=== PATIENT | male | born 1990 | race Native Hawaiian/Other Pacific Islander ===

== ENCOUNTER 2016-07-16 20:24 | Emergency (ER) | payer SELFPAY ==
[2016-07-16 20:58] VITALS: TEMP 97.9; O2SAT 99
--- NOTE | 2016-07-16 22:56 | C.PDOC ---
History Of Present Illness Patient c/o FB sensation in the throat started after he ate fish 3 h ago. Patient denies vomiting or difficulty swallowing. Time Seen by Provider: 07/16/16 21:26 Chief Complaint (Nursing): ENT Problem History Per: Patient Onset/Duration Of Symptoms: Hrs (3) Current Symptoms Are (Timing): Still Present Quality (Ear): Foreign Body Symptoms Have Been: Continuous Severity: Moderate Pain Scale Rating Of: 3 Past Medical History Reviewed: Historical Data, Nursing Documentation, Vital Signs Vital Signs: Last Vital Signs Temp 97.9 F 07/16/16 20:56 Pulse 74 07/16/16 22:30 Resp 20 07/16/16 22:30 BP 124/72 07/16/16 22:30 Pulse Ox 99 07/17/16 00:07 - Medical History PMH: No Chronic Diseases Family History: States: No Known Family Hx - Social History Hx Tobacco Use: No Hx Alcohol Use: No Hx Substance Use: No - Immunization History Hx Tetanus Toxoid Vaccination: No Hx Influenza Vaccination: No Hx Pneumococcal Vaccination: No Review Of Systems Except As Marked, All Systems Reviewed And Found Negative. Physical Exam - Physical Exam Appears: Well, Non-toxic, No Acute Distress Head: Atraumatic, Normacephalic Eye(s): bilateral: Normal Inspection Nose: Normal Oral Mucosa: Moist Tongue: Normal Appearing Gingiva: Normal Appearing ED Course And Treatment O2 Sat by Pulse Oximetry: 99 - CT Scan/US CT soft tissue neck Other Rad Studies (CT/US): Read By Radiologist, Radiology Report Reviewed CT/US Interpretation: Addendum created by Jhon Chester MD on 07/16/2016 11:05 PM Eastern Time ([place] & [place]). THIS REPORT CONTAINS FINDINGS THAT MAY BE CRITICAL TO PATIENT CARE. The. findings were verbally communicated via telephone conference with physician college sports assistant. Va Meyer PA-C at 11:05 PM EDT on 07/16. The findings were acknowledged and. understood. Initial Report created on 07/16/2016 10:59 PM Eastern Time ([place] & [place]). EXAM: CT Neck Without Intravenous Contrast. CLINICAL HISTORY: 26 years old, male; Pain; Painful swallowing and other: Swallowed fish bone; Additional info: ? Fish. bone stuck in the throat. TECHNIQUE: Axial computed tomography images of the neck without intravenous contrast. This CT exam was. performed using one or more of the following dose reduction techniques: automated exposure. control, adjustment of the mA and/or kV according to patient size, and/or use of iterative. reconstruction technique. Coronal and sagittal reformatted images were created and reviewed. COMPARISON: CR - NECK SOFT TISSUE 07/16/2016 9:28:46 PM. FINDINGS: Nasopharynx: Unremarkable. Oropharynx: No significant tonsillar enlargement. Hypopharynx: Unremarkable. Larynx: 1.5 x 0.1 x 0.1 cm linear radiopaque foreign body within vallecula. Normal epiglottis. Trachea: Unremarkable. Retropharyngeal space: Unremarkable. Submandibular/parotid glands: Glands are normal in size. Thyroid: No enlarged or calcified nodules. Bones/joints: No acute fracture. Soft tissues: See above. Vasculature: No acute findings. Lymph nodes: No pathologically enlarged lymph nodes. Sinuses: Complete opacification of RIGHT maxillary sinus. Partial opacification of RIGHT ethmoid. sinus. Scattered minimal to mild mucosal thickening of remaining sinuses. Lung apices: Unremarkable as visualized. IMPRESSION: 1. Foreign body. 2. Sinus disease. 3. Incidental/non-acute findings are described above. Thank you for allowing us to participate in the care of your patient. Dictated and Authenticated by: Jhon Chester MD. 07/16/2016 10:59 PM Eastern Time ([place] & [place]) Progress Note: attempted to remove FB using direct laryngoscopy, but was unable to remove it. Patient tolerated procedure well. On re-exam patient is able to swallow and has no difficulty breathing. ENT store protection specialist was paged twice with no call back. Patient wanted to be d/c home and will f/u with on 07/18/16. Disposition - Disposition Referrals: Bhupinder Albert MD [Staff Provider] - Disposition: HOME/ ROUTINE Disposition Time: 00:05 Condition: STABLE Additional Instructions: Follow up with ENT specialist within 1-2 days. Return to Ed immediately if feel worse. Instructions: Esophageal Foreign Body (ED) - Clinical Impression Clinical Impression: Foreign body in throat
--- NOTE | 2016-07-16 22:59 | CT ---
EXAM: CT Neck Without Intravenous Contrast CLINICAL HISTORY: 26 years old, male; Pain; Painful swallowing and other: Swallowed fish bone; Additional info: ? Fish bone stuck in the throat TECHNIQUE: Axial computed tomography images of the neck without intravenous contrast. This CT exam was performed using one or more of the following dose reduction techniques: automated exposure control, adjustment of the mA and/or kV according to patient size, and/or use of iterative reconstruction technique. Coronal and sagittal reformatted images were created and reviewed. COMPARISON: CR - NECK SOFT TISSUE 07/16/2016 9:28:46 PM FINDINGS: Nasopharynx: Unremarkable. Oropharynx: No significant tonsillar enlargement. Hypopharynx: Unremarkable. Larynx: 1.5 x 0.1 x 0.1 cm linear radiopaque foreign body within vallecula. Normal epiglottis. Trachea: Unremarkable. Retropharyngeal space: Unremarkable. Submandibular/parotid glands: Glands are normal in size. Thyroid: No enlarged or calcified nodules. Bones/joints: No acute fracture. Soft tissues: See above. Vasculature: No acute findings. Lymph nodes: No pathologically enlarged lymph nodes. Sinuses: Complete opacification of RIGHT maxillary sinus. Partial opacification of RIGHT ethmoid sinus. Scattered minimal to mild mucosal thickening of remaining sinuses. Lung apices: Unremarkable as visualized. IMPRESSION: 1. Foreign body. 2. Sinus disease. 3. Incidental/non-acute findings are described above.
[2016-07-16 23:57] VITALS: BP 124/72; PULSE 74; RESP 20
--- NOTE | 2016-07-17 08:58 | RAD ---
PROCEDURE: Radiographs of the neck (soft tissue). HISTORY: ? fish bone stuck duke the throat COMPARISON: None. TECHNIQUE: Frontal and Lateral Radiographs of the neck, optimized for soft tissue visualization. FINDINGS: SOFT TISSUES: Unremarkable. No radiopaque foreign body seen. CERVICAL SPINE: Grossly unremarkable. OTHER FINDINGS: None. IMPRESSION: No radiographic evidence of radiopaque foreign body in the neck.
--- NOTE | 2016-07-19 12:25 | C.PDOC ---
History Of Present Illness I was told by the ER staff that they tried to call me for this patient on monday (when he was in the ER) and I did not respond. I was not called by the ER at [facility] on that day. I checked my cell phone where all my calls come in from and there were no calls from [facility]. I relayed this to the ER and showed them my phone to see that no one from ER called me. I then told them that they should call the patient and have him come back to the ER. Time Seen by Provider: 07/16/16 21:26 Chief Complaint (Nursing): ENT Problem Past Medical History Vital Signs: Last Vital Signs Temp 97.9 F 07/16/16 20:56 Pulse 74 07/16/16 22:30 Resp 20 07/16/16 22:30 BP 124/72 07/16/16 22:30 Pulse Ox 99 09/29/16 12:14 - Medical History PMH: No Chronic Diseases Family History: States: No Known Family Hx - Social History Hx Tobacco Use: No Hx Alcohol Use: No Hx Substance Use: No - Immunization History Hx Tetanus Toxoid Vaccination: No Hx Influenza Vaccination: No Hx Pneumococcal Vaccination: No ED Course And Treatment O2 Sat by Pulse Oximetry: 99 Disposition - Disposition Referrals: Bhupinder Albert MD [Staff Provider] - Disposition: HOME/ ROUTINE Disposition Time: 00:12 Condition: UNKNOWN Additional Instructions: Follow up with ENT specialist within 1-2 days. Return to Ed immediately if feel worse. Instructions: Esophageal Foreign Body (ED) - Clinical Impression Clinical Impression: Foreign body in throat
--- NOTE | 2016-07-20 07:33 | PN ---
DATE: 07/19/2016 The patient was seen in the Emergency Room on 07/17/2016. I am dictating my note on 07/19/2016, two days after he was seen in the ER. I was told by the ER staff that they tried to call me for this patient on Monday when he was in the Emergency Room and I did not respond. I was not called by the ER at [facility] on that day. I checked my cellphone where all my calls come in from and there were no calls from [facility]. I relayed this to the ER and showed them my cellphone to see that the ER at [facility] did not call me. I then told them that they should call the patient and have him come back to the Emergency Room. Bhupinder Albert MD cc: [id number] TT: 07/19/2016 15:06:09 Confirmation # [id number] Dictation # [id number] sn
--- NOTE | 2016-08-02 11:39 | CON ---
DATE: 07/19/2016 NOTE: I spoke to the ER staff on 07/18 or 07/19 and I was told by them that they tried to reach me 2 days earlier on the for a patient in the ER, and I did not respond. I was told by the ER staff that they tried to call me for this patient on Monday when he was in the ER, and I did not respond. I was not called by the ER at [facility] on that day; I checked my cellphone where all my calls come in from, and there were no calls from [facility]. I related this to the the ER and showed them my phone so they could see that no one from the ER called me. I then told them that they should call the patient and have him come back to the Emergency Room. I wrote a note into the computer , however, the computer is not letting me save my note when I am trying to sign it. Therefore, I have to redictate the note; however, this conversation did take place, I believe on the or the , this conversation took place, and I typed a note in the computer regarding it, but the computer for some reason is not letting me sign my note. I am not erasing the note, I am going to keep it in the computer and hopefully at some point, they will let me sign it. Bhupinder Albert MD cc: [id number] TT: 08/02/2016 09:52:41 Confirmation # [id number] Dictation # [id number] ron PEREZ
== END 2016-07-17 00:12 | disposition home or self-care (01) ==
LOC: C.ER 20:24
DX: T17.298A Other foreign object in pharynx causing other injury, initial encounter (principal); X58.XXXA Exposure to other specified factors, initial encounter